=== PATIENT | male | born 1990 | race Caucasian/White ===

== ENCOUNTER 2024-02-15 16:45 | Emergency (ER) | payer SELFPAY ==
[~2024-02-15] VITALS: Ht 175.3 cm; Wt 104.3 kg
[~2024-02-15 16:45] MED LIST: MOTRIN 800MG; VIC
[2024-02-15 16:50] VITALS: BP 147/100; PULSE 77; RESP 18; TEMP 98.2; O2SAT 98
[2024-02-15 18:10] LABS: FLU A ANTIGEN negative (NEGATIVE); FLU B ANTIGEN NEGATIVE (NEGATIVE)
[2024-02-15] MEDS ORDERED: CETI-366 PO (19:14)
[2024-02-15] MEDS ORDERED: ALBU0.0912 IH (19:14)
[2024-02-15 19:20] VITALS: BP 138/85; PULSE 86; RESP 18; TEMP 97.8; O2SAT 98
== END 2024-02-15 19:20 | disposition home or self-care (01) ==
LOC: MED 16:45
DX: S29.012A Strain of muscle and tendon of back wall of thorax, initial encounter (principal); J45.909 Unspecified asthma, uncomplicated; Z20.822 Contact with and (suspected) exposure to COVID-19; Z79.899 Other long term (current) drug therapy; X58.XXXA Exposure to other specified factors, initial encounter; Y93.89 Activity, other specified; Y92.89 Other specified places as the place of occurrence of the external cause; Y99.8 Other external cause status
CPT/HCPCS: 71045; 99284